=== PATIENT | male | born 1995 | race Caucasian/White ===

== ENCOUNTER 2018-12-07 09:09 | Emergency (ER) | payer BC ==
[~2018-12-07] VITALS: Ht 177.8 cm; Wt 93.2 kg
[2018-12-07 09:12] VITALS: TEMP 100.3
[2018-12-07] MEDS ORDERED: 00186-0370-20 IH (09:14)
[2018-12-07 09:57] LABS: BASO % 0.3 % (0.0-2.0); EOS # 0.1 (0.0-0.7); EOS % 1.4 % (0-4.0); GRAN # 7.5 (1.4-6.5); GRAN % 81.8 % (42.2-75.2); HEMATOCRIT 47.4 % (42.0-52.0); HEMOGLOBIN 16.8 g/dl (13.5-18.0); LYMPH # 0.5 (1.2-3.4); LYMPH % 5.5 % (20.0-51.0); MEAN CELL VOLUME 87 fl (80.0-100.0); MEAN CORPUSCULAR HEMOGLOBIN 31 pg (27.0-31.0); MEAN CORPUSCULAR HGB CONC 35 g/dl (33.0-37.0); MONO % 10.6 % (1.7-9.3); PLATELET COUNT 186 K/mm3 (130-400); RED BLOOD COUNT 5.43 M/mm3 (4.20-5.60); REDCELL DISTRIBUTION WIDTH-CV 11.9 % (11.5-14.5)
[2018-12-07 10:08] LABS: ALBUMIN 4.6 gm/dL (3.5-5.0); BILIRUBIN,TOTAL 0.7 mg/dL (0.0-1.0); C-REACTIVE PROTEIN 1.1 mg/dL (0.0-0.9); CALCIUM 9.9 mg/dL (8.4-10.2); CREATININE, serum 1.44 mg/dL (0.66-1.25); POTASSIUM 4.1 mmol/L (3.4-5.0); TOTAL PROTEIN 7.7 gm/dL (6.4-8.2)
[2018-12-07 11:37] LABS: COLLECTION METHOD CLEAN CATCH
[2018-12-07 11:59] LABS: PH 6 (5-8); URINE APPEARANCE Clear; URINE BILIRUBIN Negative (NEGATIVE); URINE BLOOD Negative (NEGATIVE); URINE COLOR Yellow; URINE GLUCOSE Negative (NEGATIVE); URINE KETONE Negative (NEGATIVE); URINE LEUKOCYTE ESTERASE Negative (NEGATIVE); URINE NITRATE Negative (NEGATIVE); URINE PROTEIN(semi-quant) Negative (NEGATIVE); URINE UROBILINOGEN Negative (NEGATIVE)
[2018-12-07 12:00] LABS: SQUAMOUS EPITHELIAL None Seen /hpf; URINE BACTERIA None Seen /hpf; URINE RBC 0-2 /hpf
[2018-12-07] MEDS ORDERED: PHENERGAN 25 TA25 MG PO (12:17)
[2018-12-07] MEDS ORDERED: CIPRO 500MG TA500 MG PO ×2 (12:17)
[2018-12-07] MEDS ORDERED: NORCO 325 MG-51 TAB PO (12:17)
[2018-12-07] MEDS ORDERED: OMNICEF 300MG300 MG PO (12:56)
[2018-12-07 12:59] VITALS: BP 136/59; PULSE 96
== END 2018-12-07 13:50 | disposition home or self-care (01) ==
LOC: COL.ER 09:09
PROVIDERS: Emergency Medicine; Nurse Practitioner
DX: N12 Tubulo-interstitial nephritis, not specified as acute or chronic (principal); J45.909 Unspecified asthma, uncomplicated
CPT/HCPCS: A4216; J0696; J1170; J1885; J2405; J7030; Q9967

== ENCOUNTER → 2018-12-14 | Outpatient (CLI) | payer BC ==
[~2018-12-14] MED LIST: 00186-0370-20 IH; CIPRO 500MG TA500 MG PO; NORCO 325 MG-51 TAB PO; OMNICEF 300MG300 MG PO; PHENERGAN 25 TA25 MG PO
== END ==
LOC: COL.RAD 08:54
DX: N10 Acute pyelonephritis (principal)